=== PATIENT | female | born 1980 | race Caucasian/White ===

== ENCOUNTER 2016-11-13 11:20 | Emergency (ER) | payer SELFPAY ==
--- NOTE | 2016-11-13 11:39 | ER Document Report ---
ED Psych Disorder / Suicide - General Stated Complaint: POSSIBLE OVERDOSE Time seen by provider: 11:39 Mode of Arrival: Medic Information source: Patient TRAVEL OUTSIDE OF THE [place] IN LAST 30 DAYS: No - HPI Patient complains to provider of: Overdose, Suicidal attempt Onset: Just prior to arrival Onset was: Cannot confirm Suicide Risk Factors: Prior suicide attempt Situational problems related to: Significant other Suicide Attempt Method: Overdose Overdose of: Acetominophen, Other - Muscle relaxers Time of ingestion: 10:30 Normal mood: No Associated symptoms: Depressed, Flat affect Similar symptoms previously: Yes Notes: Patient is a 36-year-old female who presents to the emergency room via EMS after intentional overdose that occurred a proximally 45 minutes prior to arrival, patient admits to taking 10 or 11 Tylenol as well as 3 muscle relaxers , on initial evaluation she states that she was taking them in an effort to help her sleep because she is very tired, however other family members arrived and stated that patient call the earlier in the day, saying goodbye to them and stating that she was going to overdose on pills that she had available to her, patient has a history of depression with a previous suicide attempt in the past , family members report that patient's boyfriend Reggie, with whom she lives, told her last night that he is having a relationship with another woman and he would like patient to move out of his house so that he can move the other woman in - Related Data Allergies/Adverse Reactions: acetaminophen [From Percocet] Allergy (Verified 05/23/15 20:30) oxycodone HCl [From Percocet] Allergy (Verified 05/23/15 20:30) Past Medical History - General Information source: Patient - Social History Smoking Status: Never Smoker Family History: Reviewed & Not Pertinent Neurological Medical History: Reports: Hx Migraine Past Surgical History: Reports: Hx Cholecystectomy - Immunizations Hx Diphtheria, Pertussis, Tetanus Vaccination: No Review of Systems - Review of Systems Constitutional: No symptoms reported EENT: No symptoms reported Cardiovascular: No symptoms reported Respiratory: No symptoms reported Gastrointestinal: No symptoms reported Genitourinary: No symptoms reported Female Genitourinary: No symptoms reported Musculoskeletal: No symptoms reported Skin: No symptoms reported Hematologic/Lymphatic: No symptoms reported Neurological/Psychological: See HPI -: Yes All other systems reviewed and negative Physical Exam - Vital signs Vitals: Resp Pulse Ox 21 H 98 11/13/16 11:27 11/13/16 11:27 Interpretation: Normal - General General appearance: Other - Somnolent but arousable to verbal stimuli - HEENT Head: Normocephalic, Atraumatic Eyes: Normal Conjunctiva: Normal Extraocular movements intact: Yes Eyelashes: Normal Pupils: PERRL Mucous membranes: Normal Pharynx: Normal Neck: Normal - Respiratory Respiratory status: No respiratory distress Chest status: Nontender Breath sounds: Normal Chest palpation: Normal - Cardiovascular Rhythm: Regular Heart sounds: Normal auscultation Murmur: No - Abdominal Inspection: Obese Distension: No distension Bowel sounds: Normal Tenderness: Nontender Organomegaly: No organomegaly - Back Back: Normal, Nontender - Extremities General upper extremity: Normal inspection, Nontender, Normal color, Normal ROM , Normal temperature General lower extremity: Normal inspection, Nontender, Normal color, Normal ROM , Normal temperature. No: [place]'s sign - Neurological Neuro grossly intact: Yes Cognition: Normal Orientation: AAOx4 Hill Coma Scale Eye Opening: To Voice Hill Coma Scale Verbal: Oriented Hill Coma Scale Motor: Obeys Commands [place] Coma Scale Total: 14 Speech: Other - Slow to respond Sensory: Normal - Psychological Associated symptoms: Depressed, Flat affect - Skin Skin Temperature: Warm Skin Moisture: Dry Skin Color: Normal Course - Re-evaluation Re-evalutation: 11/13/16 12:19 Nursing staff placed a call to poison control for recommendations, he received 50 g of charcoal via EMS based on the recommendations, they recommend a Tylenol and liver enzyme level IV hours postingestion and then 3 hours after that which would be 2 PM and 5 PM, 24 hours of cardiac monitoring, supportive care, observe for seizure activity, benzos or phenobarbital would be appropriate treatment if seizures were observed, IVC paper work has been completed and placed on the chart Several family members at bedside including Kaur Rowe, cousin ([phone]) , mother Nicolette Veras, ([phone]) and daughter Sandy Finnegan ([phone] ) all expressed concern that patient was brought to [facility], they requested patient immediately be transferred to [place], they stated they' re concerned that patient came here approximately one year ago for similar complaints and was discharged after 24 hours, they expressed concern because patient called at least 2 of them this morning, Kaur and Sandy, making statements that she was suicidal, saying "tell everyone that I love them. I don 't want to live anymore. I'm sorry that I was a bad mother.", And then told cousin Kaur that she had plenty of pills at the home that she was going to take in an effort to kill herself 11/13/16 18:39 Patient is resting comfortably with stable vital signs, we will continue to monitor patient in the emergency room until cleared for mental health evaluation 11/13/16 19:51 Patient remained stable with stable vital signs, Tylenol level is now measuring at less than 10, with normal liver enzymes, patient will remain on the monitor until she can be cleared for mental health evaluation - Vital Signs Vital signs: Temp Pulse Resp BP Pulse Ox 98.2 F 19 123/74 93 11/13/16 18:15 11/13/16 15:01 11/13/16 15:01 11/13/16 15:01 - Laboratory Result Diagrams: 11/13/16 11:30 11/13/16 19:15 Laboratory results interpreted by me: 11/13/16 11/13/16 11/13/16 11:30 12:08 13:05 Sodium Glucose 195 H POC Glucose 185 H Urine Ketones 80 H Urine Ascorbic Acid 40 H Salicylates < 1.0 L Acetaminophen 11/13/16 11/13/16 15:27 19:15 Sodium 149.8 H 145.4 H Glucose 184 H 192 H POC Glucose Urine Ketones Urine Ascorbic Acid Salicylates Acetaminophen < 10 L < 10 L - EKG Interpretation by Me EKG shows normal: Sinus rhythm Rate: Normal Rhythm: NSR Discharge - Discharge Clinical Impression: Suicide attempt Overdose Qualifiers: Encounter type: initial encounter Injury intent: intentional self-harm Qualified Code(s): T50.902A - Poisoning by unspecified drugs, medicaments and biological substances, intentional self-harm, initial encounter Condition: Stable Disposition: PSYCH HOSP/UNIT
[2016-11-13 11:49] LABS: ABSOLUTE LYMPHOCYTES (AUTO) 1.8 10^3/uL (0.5-4.7); ABSOLUTE MONOCYTES (AUTO) 0.5 10^3/uL (0.1-1.4); ABSOLUTE NEUT (AUTO) 7.3 10^3/uL (1.7-8.2); BASOPHILS % (AUTO) 0.3 % (0-2); EOSINOPHILS % (AUTO) 0.2 % (0-6); HEMATOCRIT 40.1 % (36.0-47.0); HEMOGLOBIN 13.4 g/dL (12.0-15.5); HGB HCT DIFFERENCE 0.1; LYMPHOCYTES % (AUTO) 18.9 % (13-45); MEAN CORPUSCULAR HGB CONC 33.4 g/dL (32.0-36.0); MEAN CORPUSCULAR VOLUME 87 fl (80-97); MONOCYTES % (AUTO) 5.3 % (3-13); RED BLOOD COUNT 4.63 10^6/uL (3.72-5.28); SEGMENTED NEUTROPHILS % (AUTO) 75.3 % (42-78); WHITE BLOOD COUNT 9.6 10^3/uL (4.0-10.5)
[2016-11-13 12:12] LABS: ALANINE AMINOTRANSFERASE 45 U/L (9-52); ALBUMIN 4.4 g/dL (3.5-5.0); ALCOHOL < 10 mg/dL (NONE DETECTED); ALKALINE PHOSPHATASE 66 U/L (38-126); ANION GAP 17 (5-19); ASPARTATE AMINO TRANSFERASE 25 U/L (14-36); BILIRUBIN,DIRECT 0.1 mg/dL (0.0-0.4); BILIRUBIN,TOTAL 0.4 mg/dL (0.2-1.3); BLOOD UREA NITROGEN 10 mg/dL (7-20); CALCIUM 9.5 mg/dL (8.4-10.2); CARBON DIOXIDE 24 mmol/L (22-30); CHLORIDE 102 mmol/L (98-107); CREATININE RESULT 0.61 mg/dL (0.52-1.25); GLUCOSE 195 mg/dL (75-110); POTASSIUM 4.3 mmol/L (3.6-5.0); SODIUM 142.6 mmol/L (137-145); TOTAL PROTEIN 7.2 g/dL (6.3-8.2)
[2016-11-13 12:46] LABS: APPEARANCE,URINE CLEAR; BILIRUBIN,URINE NEGATIVE (NEGATIVE); GLUCOSE, URINE NEGATIVE (NEGATIVE); KETONES,URINE 80 mg/dL (NEGATIVE); LEUKOCYTE ESTERASE,URINE NEGATIVE (NEGATIVE); NITRITE,URINE NEGATIVE (NEGATIVE); PROTEIN,URINE NEGATIVE (NEGATIVE); URINE SPECIFIC GRAVITY 1.034; UROBILINOGEN,URINE NEGATIVE mg/dL (<2.0)
--- NOTE | 2016-11-13 12:56 | PSYCHOLOGICAL NOTE ---
Psych Note - Psych Note Psych Note: Patient is a 36-year-old female who presents via EMS for a reported overdose of unknown intent. Patient did report upon arrival that she was just trying to go to sleep because she was tired; however, family members were bedside and reported to staff the patient text stated to different family members to say goodbye and or that she loved them. Patient allegedly took numerous tabs of Tylenol as well as a few muscle relaxers. Per poison control patient will be monitored for the next 24 hours with various intervals of tests. Patient was petitioned for IVC by ED MD. patient this afternoon is accompanied by her cousin and also her mother who are bedside. Patient requested to speak with this clinician alone despite the insistence of her family members remaining in the room. Patient states she has not been sleeping and is under a lot of stress. Patient ruminates on incidences which occurred 3-1/2 years ago per her report to include a divorce and being fired from her job at else. Patient states she immediately entered a relationship with her current boyfriend and they got serious quickly and moved in together. Patient states she was just starting to get her life back and over the went to her boyfriend' s brother's house. She states they return last night and she was helping her boyfriend set up a new phone and discovered screening shots and other photographs on his old phone. She states she confronted him and he said it was not like he was trying to hide it. She states she was told by him 1 minute that he loves her and then the next that he wants her to move out. She states she can probably stay at her cousin's house and states she in fact did so 3 weeks ago when she left for a few days to give him some space. She states he is a and that his in a motor vehicle accident and he often struggles with guilt and depression surrounding this. Patient discussed at length her relationship with her boyfriend. She states she was not exactly sure what she was trying to do when she took the acetaminophen. Patient denies wanting to actually . Patient states she wants to call her boyfriend, but her family will not allow her to do so. She asked if there is a phone she could use when the family members leave. Encouraged patient to work this out between she and her family and make a decision. Patient did discuss additional stressors to include financial problems and stress over her mother's stage IV lung cancer. Patient states she does not want to be sent away and locked in a psychiatric facility. She states that will help. Patient at this time is unable to state what will help. Patient states when she was seen in 2014 she didn't follow-up with counseling, but when she lost her job she also lost her insurance and was unable to continue the counseling. Note, patient's mother and sister are present, but patient did not wish for communication. Patient is alert and oriented. Mood is depressed with tearful affect. Patient does not deny or endorse suicidal intent behind her alleged overdose. Patient denies A/VH; delusions not noted. Thought processes were focused on her boyfriend and their relationship. Conversational speech was WNL for rate, tone , and prosody. Intellectual abilities were estimated within average range. Attention and focus were fair. Insight, judgment, impulse control were poor. 311 (F32.9) Unspecified Depressive Disorder Presenting symptoms are congruent with that of a depressive disorder and are causing clinically significant concerns in her home, social, and work domains At this time, in this setting (ED) there is not enough historical information to make a more specific diagnosis Patient is recommended to remain under involuntary commitment at this time. Patient will be reevaluated, likely in the morning. Ultimately Dr. Blum in regards to the care and management of this patient. JAMES Travis is in agreement with disposition and recommendations.
[2016-11-13 12:58] LABS: URINE BARBITURATES SCREEN NEGATIVE; URINE METHADONE SCREEN NEGATIVE; URINE OPIATES LOW NEGATIVE; URINE PHENCYCLIDINE SCREEN NEGATIVE
[2016-11-13 16:10] LABS: ALANINE AMINOTRANSFERASE 44 U/L (9-52); ALBUMIN 4.4 g/dL (3.5-5.0); ALKALINE PHOSPHATASE 60 U/L (38-126); ANION GAP 18 (5-19); ASPARTATE AMINO TRANSFERASE 26 U/L (14-36); BILIRUBIN,DIRECT 0.1 mg/dL (0.0-0.4); BILIRUBIN,TOTAL 0.4 mg/dL (0.2-1.3); BLOOD UREA NITROGEN 9 mg/dL (7-20); CALCIUM 9.5 mg/dL (8.4-10.2); CARBON DIOXIDE 25 mmol/L (22-30); CHLORIDE 107 mmol/L (98-107); CREATININE RESULT 0.61 mg/dL (0.52-1.25); GLUCOSE 184 mg/dL (75-110); SODIUM 149.8 mmol/L (137-145); TOTAL PROTEIN 7.1 g/dL (6.3-8.2)
--- NOTE | 2016-11-13 18:59 | EKG REPORT ---
SEVERITY:- ABNORMAL ECG - SINUS RHYTHM PROBABLE LEFT ATRIAL ABNORMALITY LEFT VENTRICULAR HYPERTROPHY BORDERLINE T ABNORMALITIES, INFERIOR LEADS : Confirmed by: Xochitl Whitney 13-Nov-2016 18:59:16
[2016-11-13 19:40] LABS: ALANINE AMINOTRANSFERASE 49 U/L (9-52); ALBUMIN 4.5 g/dL (3.5-5.0); ALKALINE PHOSPHATASE 66 U/L (38-126); ANION GAP 15 (5-19); ASPARTATE AMINO TRANSFERASE 26 U/L (14-36); BILIRUBIN,DIRECT 0.1 mg/dL (0.0-0.4); BILIRUBIN,TOTAL 0.5 mg/dL (0.2-1.3); BLOOD UREA NITROGEN 9 mg/dL (7-20); CALCIUM 9.7 mg/dL (8.4-10.2); CARBON DIOXIDE 26 mmol/L (22-30); CHLORIDE 104 mmol/L (98-107); CREATININE RESULT 0.57 mg/dL (0.52-1.25); GLUCOSE 192 mg/dL (75-110); POTASSIUM 3.9 mmol/L (3.6-5.0); SODIUM 145.4 mmol/L (137-145); TOTAL PROTEIN 7.5 g/dL (6.3-8.2)
[2016-11-13] MEDS ORDERED: METFORMIN HCL 500 MG TABLET PO ONE (21:41)
[2016-11-13] MEDS ORDERED: DIAZEPAM 5 MG TABLET PO ONE (21:42)
[2016-11-14] MEDS ORDERED: DIAZEPAM 5 MG TABLET PO ONE (05:08)
[2016-11-14] MEDS ORDERED: METFORMIN HCL 500 MG TABLET PO ONE (05:08)
--- NOTE | 2016-11-14 11:33 | ER Document Report ---
ED Psych Disorder / Suicide - General Mode of Arrival: Medic Information source: Patient, Parent, [facility] Records TRAVEL OUTSIDE OF THE [place] IN LAST 30 DAYS: No - HPI Overdose of: Acetominophen Amount: a handfull Normal mood: Yes <DAKOTAH MENA - Last Filed: 11/14/16 11:34> <MAURISIO PEDERSEN - Last Filed: 11/14/16 11:54> - General Chief Complaint: Possible Overdose Stated Complaint: POSSIBLE OVERDOSE - HPI Notes: Patient is a 36-year-old female who presents via EMS for a reported overdose of unknown intent. Patient did report upon arrival that she was just trying to go to sleep because she was tired; however, family members were bedside and reported to staff the patient text stated to different family members to say goodbye and or that she loved them. Patient allegedly took numerous tabs of Tylenol as well as a few muscle relaxers. Per poison control patient will be monitored for the next 24 hours with various intervals of tests. Patient states that she took a "handful of Tylenol;" she is unable to determine the exact amount. She continue disclose she did take a couple muscle relaxers also. Patient denies suicidal ideations stating that she did not take Tylenol to kill herself rather just fall asleep because she had not slept in a few days. Patient is alert and orientated to person place time and circumstance. Mood is euthymic with congruent affect. Patient denies suicidal homicidal ideation stating she only took "a handful of Tylenol" to fall asleep not to kill herself. Clinician notes patient's acetaminophen levels was within therapeutic range; no indication of a "handful of Tylenol." Patient denies auditory visual hallucinations; no delusions are noted. Thought process is currently logical organized and linear. Eye contact was fair. Intellectual abilities appear to be within average range. Attention and concentration are fair. Insight, judgment, impulse control are fair. 311 (F39) Unspecified Depressive Disorder Impression\\plan: Patient is recommended for rescind of IVC is considered psychiatrically cleared for discharge. Patient does not meet IVC criteria per [place] GS 122C. patient states that she took a handful of Tylenol, she denies this is an attempt at suicide. Clinician notes acetaminophen levels for patient was within therapeutic range when arriving at [facility] ED and proceeded to be below detection range after; this would indicate attention seeking behavior. Patient is recommended for outpatient services through a mental health provider of her choice. Dr. Blum was consulted on management of this patient attending physician is in agreement with recommendations and disposition. (DAKOTAH MENA) - Related Data Allergies/Adverse Reactions: acetaminophen [From Percocet] Allergy (Verified 05/23/15 20:30) oxycodone HCl [From Percocet] Allergy (Verified 05/23/15 20:30) Home Medications: Current Home Medications Venlafaxine HCl [Effexor 75 mg Tablet] 1 tab PO DAILYP PRN 11/14/16 [History] Past Medical History - General Information source: Patient - Social History Smoking Status: Never Smoker Frequency of alcohol use: None Drug Abuse: None Family History: Reviewed & Not Pertinent Neurological Medical History: Reports: Hx Migraine Past Surgical History: Reports: Hx Cholecystectomy - Immunizations Hx Diphtheria, Pertussis, Tetanus Vaccination: No <DAKOTAH MENA - Last Filed: 11/14/16 11:34> Course - Laboratory Result Diagrams: 11/13/16 11:30 11/13/16 19:15 <DAKOTAH MENA - Last Filed: 11/14/16 11:34> - Laboratory Result Diagrams: 11/13/16 11:30 11/13/16 19:15 <MAURISIO PEDERSEN - Last Filed: 11/14/16 11:54> - Re-evaluation Re-evalutation: 11/14/16 11:53 Patient is resting comfortably, reports feeling much better, denies being suicidal today, she has been seen and evaluated by mental health team and the plan is for patient to go home and live with her mother, patient and mother both able to contract for safety, patient has had multiple family members at bedside which are quite supportive of her as well, she agrees to follow-up with a mental health provider within the next 1-2 days or return to the emergency room if symptoms worsen, IVC paper work has been rescinded and patient will be discharged with instructions for follow-up (MAURISIO PEDERSEN) - Vital Signs Vital signs: Temp Pulse Resp BP Pulse Ox 97.8 F 19 120/77 97 11/14/16 07:30 11/14/16 10:00 11/14/16 07:31 11/14/16 10:00 - Laboratory Laboratory results interpreted by me: 11/13/16 11/13/16 11/13/16 11:30 12:08 13:05 Sodium Glucose 195 H POC Glucose 185 H Urine Ketones 80 H Urine Ascorbic Acid 40 H Salicylates < 1.0 L Acetaminophen 11/13/16 11/13/16 11/13/16 15:27 19:15 21:28 Sodium 149.8 H 145.4 H Glucose 184 H 192 H POC Glucose 176 H Urine Ketones Urine Ascorbic Acid Salicylates Acetaminophen < 10 L < 10 L Discharge <DAKOTAH MENA - Last Filed: 11/14/16 11:34> <MAURISIO PEDERSEN - Last Filed: 11/14/16 11:54> - Discharge Clinical Impression: Suicide attempt Overdose Qualifiers: Encounter type: initial encounter Injury intent: intentional self-harm Qualified Code(s): T50.902A - Poisoning by unspecified drugs, medicaments and biological substances, intentional self-harm, initial encounter Condition: Stable Disposition: HOME, SELF-CARE Instructions: Suicidal Ideation (OM) Additional Instructions: DEPRESSION: Your evaluation reveals that you have mental depression. While symptoms may be vague, they often include disturbance of sleep, fatigue, loss of appetite , and general loss of interest in life. While depression may be a side effect of drugs, or a reaction to a major change in your life, many cases have no known cause. If depression is acute, and related to a major loss in your life, you can expect it to clear completely with time. If you have been depressed a long time , are prone to repeated bouts of depression or low mood, or have been thinking of suicide, get help. Depression can be treated with anti-depressant medication and counselling. Long-term depression will often take a few weeks to clear, even with appropriate medication. Follow-up care is important. SUICIDAL IDEATION: Suicidal ideation is a common medical term for thoughts about suicide, which may be as detailed as a formulated plan, without the suicidal act itself. Although most people who undergo suicidal ideation do not commit suicide, some go on to make suicide attempts. The range of suicidal ideation varies greatly from fleeting to detailed planning, role playing, and unsuccessful attempts. While thoughts about suicide are common, most people do not carry out serious actions to commit suicide. Based upon your evaluation and discussion with you, we do not believe you are currently at risk to act upon your thoughts of suicide. You have agreed to return to the Emergency Department, at any time , if you feel inclined to act upon your suicidal thoughts. Overdose You have taken more medication than you should have. After your evaluation and care, it is felt that your overdose is not likely to be harmful or of any significant consequences to you and you are being discharged. In the future, you should be careful not to take more medications than what is prescribed for you. Although your overdose does not seem to be of any danger to you at this time, if you develop any unusual or unexpected symptoms after your discharge, you should return to the Emergency Department immediately for re-evaluation. FOLLOW-UP CARE: Please call the mental health provider of your choice for an appointment as you were instructed or within the next two days. If you experience worsening or a significant change in your symptoms, notify the physician immediately or return to the Emergency Department at any time for re-evaluation. Patient's family agrees to ensure the patient has no access to medication or weapons and to assist with following up with mental health resources.
[2016-11-14 12:06] VITALS: BP 112/77
== END 2016-11-14 12:10 | disposition home or self-care (01) ==
LOC: ER 11:20
DX: T39.1X2A Poisoning by 4-Aminophenol derivatives, intentional self-harm, initial encounter (principal); T48.202A Poisoning by unspecified drugs acting on muscles, intentional self-harm, initial encounter; Y92.9 Unspecified place or not applicable; F32.9 Major depressive disorder, single episode, unspecified; E66.9 Obesity, unspecified; Z88.6 Allergy status to analgesic agent; Z90.49 Acquired absence of other specified parts of digestive tract
CPT/HCPCS: 36415; 80053; 80307; 81001; 82962; 84703; 85025; 93005; 93010; 99285

== ENCOUNTER → 2020-07-02 | Outpatient (CLI) | payer OTHER ==
--- NOTE | 2020-07-02 10:46 | WOMENS IMAGING REPORT ---
EXAM DESCRIPTION: BILAT SCREENING MAMMO W/CAD IMAGES COMPLETED DATE/TIME: 07/02/2020 10:29 am REASON FOR STUDY: Z12.31 ENCOUNTER FOR SCREENING MAMMOGRAM FOR MALIGNANT NEOPLASM OF BREAST Z12.31 ENCNTR SCREEN MAMMOGRAM FOR MALIGNANT NEOPLASM OF JARET COMPARISON: 2011 EXAM PARAMETERS: Standard craniocaudal and mediolateral oblique views of each breast recorded using digital acquisition. Read with the assistance of CAD. .[facility] - [employer] Version 9.2 LIMITATIONS: None. FINDINGS: No suspicious masses, suspicious calcifications or architectural distortion. No areas of c oncern. IMPRESSION: NEGATIVE MAMMOGRAM. BIRADS 1 BREAST DENSITY: b. There are scattered areas of fibroglandular density. BIRAD: ASSESSMENT: 1 NEGATIVE RECOMMENDATION: ROUTINE SCREENING COMMENT: The patient has been notified of the results by letter per MQSA requirements. Additional no tification policies are in place for contacting patient with suspicious or incomplete findings. Quality ID #[id number]: The [employer] recommends an annual screening mammogram for women aged 40 years or over. This facility utilizes a reminder system to ensure that all patients receive reminder letters, and/or direct phone calls for appointments. This includes reminders for routine scr eening mammograms, diagnostic mammograms, or other Breast Imaging Interventions when appropriate. Th is patient will be placed in the appropriate reminder system. TECHNICAL DOCUMENTATION: FINDING NUMBER: (1) ASSESSMENT: (1) JOB ID: [id number] 2010 [facility]- All Rights Reserved Reading location - IP/workstation name: [email or web address]
== END ==
LOC: WI 10:03
PROVIDERS: ATTEND Nurse Practitioner Family
DX: Z12.31 Encounter for screening mammogram for malignant neoplasm of breast (principal)
CPT/HCPCS: 77067